=== PATIENT | male | born 1945 | race Caucasian/White ===

== ENCOUNTER → 2019-01-18 | Outpatient (CLI) | payer MEDICARE, OTHER ==
--- NOTE | 2019-01-18 08:31 | RADIOLOGY REPORT (SQ) ---
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 N Was the patient offered tobacco cessation counseling? Y Was the patient engaged in shared decision making for this test? Y Does the patient have signs or symptoms of Lung Cancer? N Is the patient a smoker? Y How many pack years? 60 How many years since quitting smoking? 0 Patients age: 73 COMPARISON: None. TECHNIQUE: Low Dose CT scan performed of the chest without intravenous contrast for purposes of scre ening for lung cancer. Images reviewed with lung, soft tissue and bone windows. Reconstructed coron al and sagittal MPR images reviewed. All images stored on PACS. All CT scanners at this facility use dose modulation, iterative reconstruction, and/or weight based d osing when appropriate to reduce radiation dose to as low as reasonably achievable (ALARA). [facility]: Dose Right [facility]: CareDose [facility]: Dose Right [facility]: Teradose 4D [facility]: PixelTalents FINDINGS: LUNG NODULES: There are occasional small pulmonary nodules, for example a 3 mm nodule in the left lung base (series 3, image 136). REMAINING LUNGS AND PLEURA: No pleural effusions or calcifications. No pneumothorax. Mild centr ilobular emphysema. HILAR AND MEDIASTINAL STRUCTURES: No identified masses. No abnormal nodes. HEART AND VASCULAR STRUCTURES: No aortic aneurysm. No pericardial effusion. No cardiac devices. CORONARY ARTERY CALCIFICATIONS: Three-vessel coronary artery calcifications. UPPER ABDOMEN, THYROID, BONES, OTHER SOFT TISSUES: No significant findings. LUNGS AND PLEURA: No masses or nodules. No pleural effusions or calcifications. No pneumothorax. Mild centrilobular emphysema. IMPRESSION: 1. There are occasional small pulmonary nodules, for example a 3 mm nodule in the left l jennifer base (series 3, image 136), likely benign sequelae of infection or inflammation. Recommend retur n to annual CT screening. 2. Emphysema. 3. Coronary artery disease. LUNGRADS: LUNGRADS: 2 BENIGN APPEARANCE OR BEHAVIOR. NODULES WITH A VERY LOW LIKELIHOOD OF BECOMING A CLINICALLY ACTIVE CANCER DUE TO SIZE OR LACK OF GROWTH. MODIFIER: S CLINICALLY SIGNIFICANT OR POTENTIALLY CLINICALLY SIGNIFICANT FINDINGS. (non lung cancer) RECOMMENDATION: Continue annual screening with LDCT in 12 months. COMMENT: CRITERIA: Solid nodule(s): < 6 mm; new < 4 mm. Part solid nodule(s): < 6 mm total diameter on baseline screening. Non solid nodule(s) (GGN): < 20 mm OR ? 20 and unchanged or slowly growing. Category 3 or 4 modules unchanged for ? 3 months. TECHNICAL DOCUMENTATION: JOB ID: [id number] Quality ID # [id number]: Final reports with documentation of one or more dose reduction techniques (e.g., Au tomated exposure control, adjustment of the mA and/or kV according to patient size, use of iterative reconstruction technique) 2010 [facility], [place] Radiology RADIATION DOSE: 111 mGy cm LIMITATIONS: No technical limitations. Reading location - IP/workstation name: [email or web address]
== END ==
LOC: RAD 07:17
PROVIDERS: ATTEND Family Medicine
DX: Z12.2 Encounter for screening for malignant neoplasm of respiratory organs (principal); F17.218 Nicotine dependence, cigarettes, with other nicotine-induced disorders; R91.8 Other nonspecific abnormal finding of lung field; J43.2 Centrilobular emphysema; I25.10 Atherosclerotic heart disease of native coronary artery without angina pectoris
CPT/HCPCS: G0297